=== PATIENT | female | born 1955 | race Caucasian/White ===

== ENCOUNTER → 2024-05-01 09:44 | Outpatient (REF) | payer BC, SELFPAY | LOC: HWWDC 09:44 | PROVIDERS: ATTENDING PHYSICIAN Obstetrics & Gynecology; FAMILY PHYSICIAN Internal Medicine | DX: Z12.31 Encounter for screening mammogram for malignant neoplasm of breast (principal) | CPT/HCPCS: 77063; 77067 ==

== ENCOUNTER → 2024-05-18 15:24 | Outpatient (REF) | payer MEDICARE, OTHER, SELFPAY | LOC: HWRAD 15:24 | PROVIDERS: ATTENDING PHYSICIAN Nurse Practitioner Adult Health | DX: M25.461 Effusion, right knee (principal); M25.561 Pain in right knee | CPT/HCPCS: 73564 ==

== ENCOUNTER → 2024-06-01 10:38 | Outpatient (REF) | payer MEDICARE, OTHER, SELFPAY | LOC: HWRAD 10:38 | PROVIDERS: ATTENDING PHYSICIAN Obstetrics & Gynecology; FAMILY PHYSICIAN Internal Medicine | DX: Z13.820 Encounter for screening for osteoporosis (principal); Z78.0 Asymptomatic menopausal state | CPT/HCPCS: 77080 ==

== ENCOUNTER → 2024-09-21 14:04 | Outpatient (REF) | payer MEDICARE, OTHER, SELFPAY | LOC: HWRAD 14:04 | PROVIDERS: ATTENDING PHYSICIAN Surgery; FAMILY PHYSICIAN Internal Medicine | DX: K43.9 Ventral hernia without obstruction or gangrene (principal) | CPT/HCPCS: 74176 ==

== ENCOUNTER → 2024-09-27 10:32 | Outpatient (REF) | payer MEDICARE, OTHER, SELFPAY | LOC: SDSPAT 10:32 | PROVIDERS: ATTENDING PHYSICIAN Surgery; FAMILY PHYSICIAN Internal Medicine | DX: K43.9 Ventral hernia without obstruction or gangrene (principal) | CPT/HCPCS: 36415; 93005 ==

== ENCOUNTER 2024-10-09 06:09 | Day surgery (SDC) | payer MEDICARE, OTHER, SELFPAY ==
[2024-09-27 14:26] VITALS: BMI 19.2
[2024-10-09] VITALS (10 sets, daily range): BP systolic 100–127; BP diastolic 43–66; BMI 19.2
[2024-10-09] MEDS: TYLENOL 1000 MG PO (07:11)
[2024-10-09] MEDS: NORMOSOL-R/PLASMALYTE-A 1000 IV (07:15)
--- NOTE | 2024-10-09 07:32 | W.SUR.PREOP ---
Pre-Operative Surgical Note
-
I have examined this patient prior to the performance of the scheduled procedure.
The patient's condition is unchanged from the time of the current History and
Physical and the patient is able to undergo the scheduled procedure.
--- NOTE | 2024-10-09 09:16 | W.IMMPOSTOP ---
Surgical Immed Post Op Note
-
Primary Surgeon: Greyson Rizzo MD
Assisting Surgeon: None
Pre-op Diagnosis: Left spigelian hernia
Post-op Diagnosis: Left spigelian hernia, left femoral hernia
Procedure Performed:
1. Left spigelian hernia repair with mesh
2. Left femoral hernia repair with mesh
Anesthesia Type: General
Specimen / Cultures: None
Estimated Blood Loss: 3 cc
Complications: None
Operative Findings: Due to her petite body habitus, her ports were offset towards the patient's right. Her Veress entry site was used as one of the port sites. She had a small defect in the left lower quadrant just inferior to the arcuate line
along the rectus edge. She was also noted to have a small left femoral hernia. The preperitoneal space was developed via a transverse incision about 4 cm above the spigelian defect which was under a centimeter and we entered the retrorectus space
as the peritoneum was exceedingly thin. After reduction of the spigelian hernia contents we continued with a standard femoral space dissection which contained preperitoneal fat. After achieving a critical view of the MPO and dividing the round
ligament the entire space as well as the spigelian defect were covered with an extra-large left Bard 3D max uncoated polypropylene mesh
--- NOTE | 2024-10-09 09:32 | OR.RPT ---
Operative Report
Operative Report
Patient Name: Brenda Benavides
: 1955
Date of Operation: 10/09/2024
Preoperative Diagnosis: Left spigelian hernia
Postoperative Diagnosis: Left spigelian hernia, left femoral hernia
Procedure(s):
1. Robotic left inguinal hernia repair with mesh
2. Robotic left spigelian hernia repair with mesh
Surgeon(s):
Dr. Rizzo
Trench Digger(s):
PATRICK Cook
Anesthesia: General
Estimated Blood Loss: 3 cc
Urine Output: None
Drains/Lines/Implants: XLarge 3D Max Bard mid weight uncoated polypropylene mesh
Specimens: None
Indication for surgery: The patient has a history of groin pain and noted on exam to have a Left lower quadrant hernia consistent with a spigelian defect. Following review of therapeutic options they have elected to undergo a minimally invasive
repair.
Operative Findings: Due to her petite body habitus, her ports were offset towards the patient's right. Her Veress entry site was used as one of the port sites. She had a small defect in the left lower quadrant just inferior to the arcuate line
along the rectus edge. She was also noted to have a small left femoral hernia. The preperitoneal space was developed via a transverse incision about 4 cm above the spigelian defect which was under a centimeter and we entered the retrorectus space
as the peritoneum was exceedingly thin. After reduction of the spigelian hernia contents we continued with a standard femoral space dissection which contained preperitoneal fat. After achieving a critical view of the MPO and dividing the round
ligament the entire space as well as the spigelian defect were covered with an extra-large left Bard 3D max uncoated polypropylene mesh
Details of the operation:
The patient was brought to the Operating Room and placed in the supine position with the arms tucked. IV antibiotics were infused and Venodyne stockings placed. Following uneventful induction of general endotracheal anesthesia, an orogastric tube
were placed. The abdomen was prepped and draped in the usual sterile fashion. The abdomen was entered using a Veress technique which required 1 pass, pneumoperitoneum to 15 mmHg was obtained without difficulty. An 8mm trochar was passed through
the abdominal wall roughly 20 cm cephalad to the inguinal canal. We then confirmed that no inadvertent injury was made while passing the trocar or Veress needle. We then placed two additional 8 mm ports in the left upper and right upper quadrants.
We then docked the robot with a Prograsper in the left hand port and monopolar scissors in the right. There is a small defect noted in the left lower quadrant consistent with a spigelian hernia that measured roughly 1 cm. We also noted femoral
defect in this area. No overt inguinal hernia defects were noted on the right. We then began by creating a flap at the level 4 cm above the spigelian defect laterally working our way medially to the medial umbilical fold. Initially we tried to
develop peritoneal flap alone however the tissue was very thin so we transition to the retrorectus space. The spigelian hernia defect was reduced which contained just preperitoneal fat and we continued our dissection inferiorly to achieve the
critical view of the MPO. The round ligament was divided after cauterization. After exposure of the entire myopectineal orifice we identified and reduced: No direct or indirect inguinal hernias, a small femoral hernia containing preperitoneal fat,
and no cord lipomas
We then fixated an extra large Bard 3D max mesh with a 2-0 Vicryl stitch at coopers medially and superior laterally, ensuring good coverage of both the femoral defect as well as the spigelian defect. The flap was then closed with a running 2-0
barbed monocryl suture ensuring that the tail was cut flush with the medial fat pad so that no barbs were exposed. During the closure of the flap an Angiocath was inserted and 20 cc of quarter percent Marcaine was instilled. The area in the flap
cavity was then evacuated of air confirming that the mesh was flush and there were no folds. All needles and instruments were then removed and the robot was undocked. The abdomen was then desufflated, and pneumoperitoneum evacuated. All skin sites
were then closed with 4-0 Monocryl followed by Dermabond. Counts were correct and overall, the patient tolerated the procedure well and was taken to the Recovery Room postoperatively in stable condition.
I was the attending physician and performed the procedure with assistance of the PA above. The assistance of PATRICK Cook was required due to the complexity of the procedure. During the procedure Viktoria assisted with port placement, instrument
and needle exchanges, and closure of the wound. I was present for all portions of the case, excluding skin closure.
Greyson Rizzo MD
== END 2024-10-09 11:13 | disposition home or self-care (01) ==
LOC: SDS 06:09
PROVIDERS: ATTENDING PHYSICIAN Surgery; FAMILY PHYSICIAN Internal Medicine
DX: K43.9 Ventral hernia without obstruction or gangrene (principal); K41.90 Unilateral femoral hernia, without obstruction or gangrene, not specified as recurrent
CPT/HCPCS: 49591; 49550; C1781

== ENCOUNTER → 2024-12-27 15:55 | Outpatient (REF) | payer MEDICARE, OTHER, SELFPAY | LOC: HWRAD 15:55 | PROVIDERS: ATTENDING PHYSICIAN Internal Medicine Rheumatology; FAMILY PHYSICIAN Internal Medicine | DX: M79.7 Fibromyalgia (principal) | CPT/HCPCS: 72110; 73030 ==

== ENCOUNTER → 2025-05-01 08:14 | Outpatient (REF) | payer MEDICARE, OTHER, SELFPAY | LOC: HWRAD 08:14 | PROVIDERS: ATTENDING PHYSICIAN Surgery; FAMILY PHYSICIAN Internal Medicine | DX: K43.9 Ventral hernia without obstruction or gangrene (principal) | CPT/HCPCS: 74176 ==

== ENCOUNTER → 2025-05-22 08:06 | Outpatient (REF) | payer MEDICARE, OTHER, SELFPAY | LOC: HWWDC 08:06 | PROVIDERS: ATTENDING PHYSICIAN Obstetrics & Gynecology; FAMILY PHYSICIAN Internal Medicine | DX: Z12.31 Encounter for screening mammogram for malignant neoplasm of breast (principal) | CPT/HCPCS: 77063; 77067 ==